=== PATIENT | male | born 1985 ===

== ENCOUNTER 2018-02-11 20:19 | Inpatient (IN) | payer SELFPAY ==
[2018-02-11] MEDS ORDERED: Promethazine HCl 25 MG/ML VIAL ONE (20:48)
[2018-02-11] MEDS ORDERED: Lorazepam 2 MG/ML VIAL ONE ×2 (21:04→21:11)
[2018-02-11] MEDS ORDERED: chlordiazePOXIDE HCl 25 MG CAP ONE (21:22)
[2018-02-11] MEDS ORDERED: Diazepam 5 MG TAB ONE (21:28)
[2018-02-11 21:30] LABS: #Lymphocytes 0.5 thou/uL (1.20-3.40); #Monocytes 0.4 thou/uL (0.11-0.59); #Neutrophils 4.1 thou/uL (1.40-6.50); %Basophils 0.9 % (0.0-1.0); %Eosinophils 0.9 % (0.0-10.0); %Lymphocytes 9.4 % (21.0-51.0); %Monocytes 8.4 % (0.0-10.0); %Neutrophils 80.4 % (42.0-75.0); Hemoglobin 14.5 g/dL (14.0-18.0); Mean Corpuscular HGB CONC 32.4 g/dL (32.0-36.0); Mean Corpuscular Hemoglobin 32.2 pg (27.0-31.0); Mean Corpuscular Volume 99.4 fL (78.0-98.0); Platelet Count 116 thou/uL (130-400); RBC Distribution Width 11.1 % (11.5-14.5); White Blood Cell (WBC) Count 5.1 thou/uL (4.8-10.8)
[2018-02-11] MEDS ORDERED: levETIRAcetam In NaCl (Iso-Os) 1,500 MG in Premix Bag 1 BAG IVPB SCH (21:30)
[2018-02-11] MEDS ORDERED: Multivitamins, Adult 10 ML, Thiamine HCl 100 MG, Folic Acid 1 MG in Dextrose 5 %-0.45 %... IV SCH (21:45)
[2018-02-11 21:52] LABS: ALT (SGPT) 138 U/L (8-55); AST (SGOT) 137 U/L (5-34); Acetaminophen Less than 6.0 mcg/mL (10.0-30.0); Albumin 4.5 g/dL (3.5-5.0); Alcohol Less than 10 mg/dL (Less than 10); Alkaline Phosphatase 57 U/L (40-150); Anion Gap 20 mmol/L (10-20); BUN (Urea Nitrogen) 6 mg/dL (8.9-20.6); Bilirubin, Total 0.9 mg/dL (0.2-1.2); Calc. Creatinine Clearance 0 mL/min (70-130); Calcium 9.6 mg/dL (7.8-10.44); Carbon Dioxide 19 mmol/L (22-29); Chloride 99 mmol/L (98-107); Estimated GFR-MDRD Greater than 90; Glucose 186 mg/dL (70-105); Protein, Total 7.5 g/dL (6.0-8.3); Salicylate Less than 8.0 mg/dL (15.0-30.0); Sodium 134 mmol/L (136-145)
--- NOTE | 2018-02-11 22:15 | CT ---
HEAD CT WITHOUT CONTRAST: HISTORY: Seizure. COMPARISON: None. FINDINGS: No parenchymal hemorrhage. No extraaxial hematoma. No midline shift. Basilar cisterns are patent. Age appropriate brain volume. Cortical quintana white matter differentiation is preserved. The ventricles and sulci are patent and symmetric. The calvarium is intact. Adequate aeration of the sinuses and mastoid air cells. IMPRESSION: No acute intracranial process. POS: [facility]
[2018-02-11 22:31] LABS: Bilirubin Small (Negative); Blood, Urine Negative (Negative); Clarity CLEAR (Clear); Glucose, Urine (Dipstick) 250 mg/dL (Negative); Leukocyte Negative (Negative); Nitrite Negative (Negative); Protein, Urine (Dipstick) 30 mg/dL (Neg-Trace); Specific Gravity, Urine 1.019 (1.002-1.036)
[2018-02-11 22:33] LABS: Bacteria/HPF None Seen HPF (None Seen); Hyaline Casts/LPF 7-10 HYALINE CAST LPF (0-3 Hyaline); Pathc Cast-AUWi Flag 2.03 (0-2.49); Squamous Epithelial 0-3 HPF (0-3); WBC/HPF 0-3 HPF (0-3)
[2018-02-11 22:40] LABS: Amphetamine Not Detected (NotDetected); Barbiturates Screen Not Detected (NotDetected); Benzodiazepine Screen Detected (NotDetected); Cocaine Metabolite Screen Not Detected (NotDetected); Medtox Reader # READER 1; Methadone Not Detected (NotDetected); Methamphetamine Not Detected (NotDetected); Opiate Screen Not Detected (NotDetected); Oxycodone Screen Not Detected (NotDetected); Phencyclidine (PCP) Not Detected (NotDetected); THC/Cannabinoid Screen Not Detected (NotDetected); Tricyclic Screen Not Detected (NotDetected)
[2018-02-11 22:41] LABS: Medtox Control Line Valid? VALID (VALID)
[2018-02-12 00:18] VITALS: BMI 21.9
[2018-02-12] MEDS ORDERED: Lorazepam 2 MG/ML VIAL SLOW IVP PRN (00:20)
[2018-02-12] MEDS ORDERED: Ondansetron PF 4 MG/2 ML Vial IVP PRN ×2 (00:48→07:34)
[2018-02-12] MEDS: Dextrose 5 %-0.45 % NaCl 1,000 ML IV SCH ×2 (01:46→08:53)
[2018-02-12 04:36] LABS: #Eosinphils 0.1 thou/uL (0.0-0.7); #Lymphocytes 0.9 thou/uL (1.20-3.40); #Monocytes 0.7 thou/uL (0.11-0.59); %Basophils 0.4 % (0.0-1.0); %Lymphocytes 16.4 % (21.0-51.0); %Monocytes 11.6 % (0.0-10.0); %Neutrophils 70.7 % (42.0-75.0); Hemoglobin 14.2 g/dL (14.0-18.0); Mean Corpuscular HGB CONC 33.4 g/dL (32.0-36.0); Mean Corpuscular Volume 98.9 fL (78.0-98.0); Mean Platelet Volume 7.4 fL (7.4-10.4); Platelet Count 118 thou/uL (130-400); RBC Distribution Width 10.9 % (11.5-14.5); Red Blood Cell (RBC) Count 4.31 mill/uL (4.70-6.10); White Blood Cell (WBC) Count 5.7 thou/uL (4.8-10.8)
[2018-02-12] MEDS ORDERED: Diazepam 5 MG TAB PO PRN (04:51)
[2018-02-12 04:55] LABS: Anion Gap 13 mmol/L (10-20); BUN (Urea Nitrogen) 5 mg/dL (8.9-20.6); Calc. Creatinine Clearance 143 mL/min (70-130); Calcium 9.3 mg/dL (7.8-10.44); Carbon Dioxide 25 mmol/L (22-29); Chloride 102 mmol/L (98-107); Estimated GFR-MDRD Greater than 90; Glucose 121 mg/dL (70-105); Potassium 3.4 mmol/L (3.5-5.1); Sodium 137 mmol/L (136-145)
[2018-02-12] MEDS ORDERED: Diazepam 5 MG TAB PO SCH (05:00)
[2018-02-12] MEDS ORDERED: Thiamine HCl 200 MG/2 ML VIAL IM SCH (05:00)
[2018-02-12 06:26] LABS: ALT (SGPT) 118 U/L (8-55); AST (SGOT) 91 U/L (5-34); Albumin 4.3 g/dL (3.5-5.0); Alkaline Phosphatase 50 U/L (40-150); Anion Gap 13 mmol/L (10-20); BUN (Urea Nitrogen) 4 mg/dL (8.9-20.6); Bilirubin, Total 1.2 mg/dL (0.2-1.2); Calc. Creatinine Clearance 143 mL/min (70-130); Calcium 9.3 mg/dL (7.8-10.44); Carbon Dioxide 25 mmol/L (22-29); Chloride 103 mmol/L (98-107); Estimated GFR-MDRD Greater than 90; Globulin 2.8 g/dL (2.4-3.5); Glucose 113 mg/dL (70-105); Potassium 3.3 mmol/L (3.5-5.1); Protein, Total 7.1 g/dL (6.0-8.3); Sodium 138 mmol/L (136-145)
[2018-02-12 06:44] LABS: Syphilis Antibody Nonreactive (Nonreactive); Syphilis Antibody Index 0.03 S/CO (<1.00 Non-Reactive)
[2018-02-12] MEDS ORDERED: Nitroglycerin 0.4 MG TAB (25 Tab Bottle) SL PRN (07:34)
[2018-02-12] MEDS ORDERED: Senokot S 8.6-50 MG TAB PO PRN (07:34)
[2018-02-12] MEDS ORDERED: hydrALAZINE 20 MG/ML VIAL SLOW IVP PRN (07:34)
[2018-02-12] MEDS ORDERED: Sodium Chloride 0.65% Nasal 44 ML BOT EA NARE PRN (07:34)
[2018-02-12] MEDS ORDERED: Bisacodyl 5 MG TAB PO PRN (07:34)
[2018-02-12] MEDS ORDERED: Benzonatate 100 MG CAP PO PRN (07:34)
[2018-02-12] MEDS ORDERED: Calcium Carbonate 500 MG ChewTAB PO PRN (07:34)
[2018-02-12] MEDS ORDERED: cloNIDine 0.1 MG TAB PO PRN (07:34)
[2018-02-12] MEDS ORDERED: Sodium Chloride 0.9% 1,000 ML IV SCH (07:45)
[2018-02-12 08:03] LABS: Hemoglobin A1c 4.8 % (4.0-6.0)
[2018-02-12] MEDS ORDERED: Potassium Chloride 40 MEQ in Sodium Chloride 0.9% 250 ML 250 ML IVPB SCH (08:30)
[2018-02-12] MEDS ORDERED: Multivitamin W/ Minerals 1 TAB PO SCH (09:00)
[2018-02-12] MEDS ORDERED: Folic Acid 1 MG TAB PO SCH (09:00)
[2018-02-12] MEDS ORDERED: Famotidine 20 MG TAB PO SCH (09:00)
[2018-02-12] MEDS ORDERED: Enoxaparin Sodium 40 MG/0.4 ML SYRINGE SC SCH (09:00)
--- NOTE | 2018-02-12 15:13 | SS ---
DATE OF ADMISSION: 02/12/2018 DATE OF DISCHARGE: 02/12/2018 CONDITION AT THE TIME OF DISCHARGE: Stable and improved. PRIMARY CARE PHYSICIAN: None. DISCHARGE DIAGNOSIS: Alcohol withdrawal seizure. CHIEF COMPLAINT: Seizure. HISTORY OF PRESENT ILLNESS: Mr. Diego is a 32-year-old male with history of on and off alcohol abuse with multiple failed rehabilitation as well as history of alcohol withdrawal seizures who presented to the emergency room with the same complaint again. History is mainly obtained by the patient himse lf who is a very poor historian. According to Mr. Diego, he drinks heavily. His last rehab was in September of this year, but since then, he has been drinking heavily on daily basis. He was visiting his family locally for the and unfortunately could not drink because he is staying with his mom. He went without any alcohol f or 3-4 days and yesterday while in a restaurant, he passed out or possibly had a seizure episode. He does not really remember any of this and only thing he remembers is waking up in an ambulance. No f amily is available at bedside to further corroborate the story. Nevertheless, upon presentation to the emergency room, he was hemodynamically stable with a blood pre ssure 137/99, pulse of 89. There was some concern for actual seizures, so he also received 1 dose of Keppra along with multiple dosages of Valium oral and IV along with Librium and multiple dosages of Ativan and Phenergan and he was admitted to [facility] for delirium tremens. At the time of my examination, the patient has no delirium tremens. No seizures, no hallucinations, not even tremors. He is desirous to go home at this time. His last alcoholic drink was more than 4 days ago and his alcohol level was less than 10. He denies any family history or personal history of seizures. He denies any family history of sudden cardiac . He denies any syncopal episodes in the near past. PAST MEDICAL HISTORY: Alcohol abuse and alcohol withdrawal seizures. PAST SURGICAL HISTORY: None. PSYCHIATRIC HISTORY: No anxiety, no depression. SOCIAL HISTORY: He drinks on a daily basis and cannot quantify. He chews tobacco. Denies any drug abuse. FAMILY HISTORY: Negative for premature coronary artery disease or sudden cardiac , stroke or di abetes. ALLERGIES: No known medication allergies. CURRENT MEDICATIONS: None. REVIEW OF SYSTEMS: A 12-point review of systems is done. It is negative except for those mentioned in the history and physical. LABORATORY DATA: CBC shows macrocytosis as well as thrombocytopenia with a platelet count of 116. N o anemia noticed. Serum chemistry shows sodium 134, potassium 3.4. Blood sugars range anywhere from 113-186. Hemoglobin A1c was checked and it is normal at 4.8. Liver enzymes are elevated at 137 AST and ALT 138. T bili is normal. Urinalysis showed proteinuria and glucosuria. Urine toxicology scr een is positive for benzodiazepines, otherwise negative. Syphilis, IgG and IgM antibody was sent for some reason by the ER physician and is negative. A CT scan of the brain done in the emergency room and reviewed by myself is negative for any acute intracranial process. PHYSICAL EXAMINATION: He was seen and examined this morning, VITAL SIGNS: Most recent include temperature 98.1, pulse of 84, respirations 16, saturating 94% on r oom air, blood pressure 123/79. GENERAL: No acute distress, awake, alert, oriented x3, though he does appear somewhat sleepy after r eceiving multiple dosages of Ativan, Valium and Phenergan in the ER. Denies any hallucinations. HEENT: Mucous membrane is moist and pink. No oropharyngeal exudate or erythema. Head is normocepha lic, atraumatic. Pupils equal, reactive to light and accommodation. Extraocular movement intact. NECK: Supple without any lymphadenopathy, JVD or bruit. LUNGS: Clear to auscultation without any wheezing, rales or rhonchi. HEART: Rate and regular is regular without any murmur, rubs or gallops. ABDOMEN: Soft, nontender, nondistended with positive bowel sounds. EXTREMITIES: Free of any cyanosis, clubbing or edema. NEUROLOGIC: Nonfocal. SKIN: Free of any rashes or bruises. Feel warm and dry to touch. PSYCHIATRIC: Normal affect. IMPRESSION AND PLAN: 1. Alcohol withdrawal seizure. The patient is currently asymptomatic. He has been treated since [place], with IV fluids, thiamine, folic acid, banana bag as well as empiric Keppra. Potassium and m agnesium have been supplemented. I have given him Librium 10 mg p.o. t.i.d. while in the hospital an d he has no overt signs and symptoms suggest acute alcohol withdrawal. He is desirous to leave and a t this point, I think he is hemodynamically stable and safe to go back home. Extensive alcohol absti ruby was advised and he is instructed to follow up with the rehab and primary care physician where adeline engle lives. A prescription of Librium 5 mg p.o. t.i.d. p.r.n. was provided to him to be used if he has any withdrawal symptoms. He was also given prescriptions for thiamine and folic acid. 2. Thrombocytopenia. This is likely secondary to chronic alcohol abuse and resultant liver injury. The patient is made aware of the results. 3. Elevated liver enzymes. Once again likely either acute alcoholic hepatitis, mild in nature versu s chronic liver injury from alcohol. 4. Hypokalemia, it has been replaced. 5. Hyperglycemia. A1c was checked and it was unremarkable and within normal range. DISCHARGE MEDICATIONS: Librium 5 mg p.o. t.i.d. p.r.n., thiamine 100 mg daily, folic acid 1 mg daily . DISCHARGE INSTRUCTIONS: He is instructed to follow up with primary care physician for rehabilitation opportunities in his area.
[2018-02-12 15:14] VITALS: BP 107/64; TEMP 98.7
[2018-02-13] MEDS ORDERED: Diazepam 5 MG TAB PO PRN (04:00)
[2018-02-13] MEDS ORDERED: Magnesium Oxide 400 MG TAB PO SCH (09:00)
== END 2018-02-12 16:52 | disposition home or self-care (01) | DRG 897 ==
LOC: ERS 20:19 → IMCU/EMU 22:22
PROVIDERS: ADMIT Hospitalist; ATTEND Hospitalist
DX: F10.231 Alcohol dependence with withdrawal delirium (principal); Y90.9 Presence of alcohol in blood, level not specified; R56.9 Unspecified convulsions
CPT/HCPCS: 36415; 70450; 80048; 80053; 80306; 80307; 81003; 81015; 82248; 83036; 85025; 86780; 93005; J1953; J2060; J2550; J3411; J3475; J3480; J7042; J7050